=== PATIENT | female | born 1990 | race Caucasian/White ===

== ENCOUNTER → 2019-08-08 07:58 | Outpatient (BNVA) | payer MEDICAID, SELFPAY | PROVIDERS: Visit Provider Nurse Practitioner | DX: F90.2 Attention-deficit hyperactivity disorder, combined type (principal); F41.1 Generalized anxiety disorder | CPT/HCPCS: 99213 ==

== ENCOUNTER → 2019-10-07 07:33 | Outpatient (BNVA) | payer MEDICAID, SELFPAY | PROVIDERS: Visit Provider Nurse Practitioner | DX: F41.1 Generalized anxiety disorder (principal); F90.2 Attention-deficit hyperactivity disorder, combined type | CPT/HCPCS: 99213 ==

== ENCOUNTER → 2020-01-12 07:34 | Outpatient (BNVA) | payer OTHER, MEDICAID, SELFPAY | PROVIDERS: Visit Provider Nurse Practitioner | DX: F41.1 Generalized anxiety disorder (principal); F90.2 Attention-deficit hyperactivity disorder, combined type | CPT/HCPCS: 99213 ==

== ENCOUNTER → 2020-04-09 09:03 | Outpatient (BNVA) | payer OTHER, MEDICAID, SELFPAY | PROVIDERS: Visit Provider Nurse Practitioner | DX: F41.1 Generalized anxiety disorder (principal); F90.2 Attention-deficit hyperactivity disorder, combined type | CPT/HCPCS: 99213 ==

== ENCOUNTER → 2020-07-18 07:38 | Outpatient (BNVA) | payer OTHER, MEDICAID, SELFPAY | PROVIDERS: Visit Provider Nurse Practitioner | DX: F41.1 Generalized anxiety disorder (principal); F90.2 Attention-deficit hyperactivity disorder, combined type | CPT/HCPCS: 99214 ==

== ENCOUNTER → 2020-10-17 07:47 | Outpatient (BNVA) | payer OTHER, SELFPAY | PROVIDERS: Visit Provider Nurse Practitioner | DX: F41.1 Generalized anxiety disorder (principal); F90.2 Attention-deficit hyperactivity disorder, combined type | CPT/HCPCS: 99214 ==

== ENCOUNTER → 2021-01-09 07:50 | Outpatient (BNVA) | payer OTHER, SELFPAY | PROVIDERS: Visit Provider Nurse Practitioner | DX: F41.1 Generalized anxiety disorder (principal); F90.2 Attention-deficit hyperactivity disorder, combined type | CPT/HCPCS: 99214 ==

== ENCOUNTER → 2021-03-27 13:30 | Outpatient (BNVA) | payer OTHER, SELFPAY | PROVIDERS: PCP Nurse Practitioner Family; Visit Provider Nurse Practitioner Family | DX: R63.5 Abnormal weight gain (principal); R53.83 Other fatigue | CPT/HCPCS: 80053; 82607; 82728; 83036; 83550; 84436; 84443; 84481 ==

== ENCOUNTER → 2021-04-03 07:55 | Outpatient (BNVA) | payer OTHER, SELFPAY | PROVIDERS: Visit Provider Nurse Practitioner | DX: F41.1 Generalized anxiety disorder (principal); F90.2 Attention-deficit hyperactivity disorder, combined type | CPT/HCPCS: 99214 ==

== ENCOUNTER → 2021-04-04 09:23 | Outpatient (BNVA) | payer OTHER, SELFPAY | PROVIDERS: PCP Nurse Practitioner Family; Visit Provider Nurse Practitioner Family | DX: D50.9 Iron deficiency anemia, unspecified (principal); N92.0 Excessive and frequent menstruation with regular cycle; R53.83 Other fatigue; Z15.89 Genetic susceptibility to other disease; Z12.39 Encounter for other screening for malignant neoplasm of breast; N92.3 Ovulation bleeding; Z01.419 Encounter for gynecological examination (general) (routine) without abnormal findings | CPT/HCPCS: 82746; 87491; 87591; 87661; 88175 ==

== ENCOUNTER 2021-05-08 15:52 | Outpatient (CLI) | payer MEDICAID, SELFPAY ==
--- NOTE | 2021-05-08 15:45 | US_ITS ---
WS: [id number] ULTRASOUND PELVIS TECHNIQUE: Transabdominal and transvaginal. ULTRASOUND PELVIS TECHNIQUE: Transabdominal. CLINICAL INFORMATION: Menorrhagia-anemia COMPARISON: 2017 FINDINGS: Normal uterus with IUD in good position Orientation: Anteverted. Size: 9.1 cm x 6.1 cm x 4.8 cm. Masses: None. Cervix: Incidental nabothian cysts. Endometrium: Normal. Adnexa: Normal. Right ovary size: 2.8 cm x 1.5 cm x 1.5 cm. Right ovary volume: 3.2 ccm3. Left ovary size: 2.9 cm x 2.1 cm x 1.4 cm. Left ovary volume: 4.4 ccm3 Free fluid: Small amount of free fluid in the cul-de-sac Other findings: None. US/US pelvic with transvaginal IMPRESSION: 1. Normal uterus with IUD in good position. 2. Thickened endometrium 3. Both ovaries are normal in appearance with normal vascularity. 4. Trace free fluid in the cul-de-sac. 5. Incidental nabothian cysts.
== END 2021-05-08 15:53 | disposition home or self-care (01) ==
LOC: RAD 15:55
PROVIDERS: PCP Nurse Practitioner Family; Visit Provider Nurse Practitioner Family
DX: N92.0 Excessive and frequent menstruation with regular cycle (principal); D50.9 Iron deficiency anemia, unspecified; Z97.5 Presence of (intrauterine) contraceptive device; R93.89 Abnormal findings on diagnostic imaging of other specified body structures; N88.8 Other specified noninflammatory disorders of cervix uteri
CPT/HCPCS: 76830; 76856; 83550

== ENCOUNTER → 2021-05-17 13:56 | Day surgery (SDC) | payer MEDICAID, SELFPAY ==
[2021-05-17 14:12] VITALS: BP 132/93; PULSE 105; RESP 18; TEMP 36.6; O2SAT 100
[2021-05-17] MEDS: iron sucrose 200 MG in sodium chloride 0.9% (100 ml) 100 ML 220 MG IV (14:21)
== END ==
PROVIDERS: PCP Nurse Practitioner Family; Visit Provider Nurse Practitioner Family
DX: D50.9 Iron deficiency anemia, unspecified (principal); N92.0 Excessive and frequent menstruation with regular cycle
CPT/HCPCS: 96365; J1756

== ENCOUNTER → 2021-05-24 10:15 | Day surgery (SDC) | payer MEDICAID, SELFPAY ==
[2021-05-24] MEDS: iron sucrose 200 MG in sodium chloride 0.9% (100 ml) 100 ML 220 MG IV (10:31)
[2021-05-24 10:35] VITALS: BP 128/82; PULSE 100; RESP 18; TEMP 36.9; O2SAT 100
== END ==
PROVIDERS: PCP Nurse Practitioner Family; Visit Provider Nurse Practitioner Family
DX: D50.9 Iron deficiency anemia, unspecified (principal); N92.0 Excessive and frequent menstruation with regular cycle
CPT/HCPCS: 96365; J1756

== ENCOUNTER → 2021-05-31 07:21 | Day surgery (SDC) | payer MEDICAID, SELFPAY ==
[2021-05-31] MEDS: iron sucrose 200 MG in sodium chloride 0.9% (100 ml) 100 ML 220 MG IV (07:34)
[2021-05-31 07:36] VITALS: BP 129/82; PULSE 79; RESP 18; TEMP 36.3; O2SAT 98
== END ==
PROVIDERS: PCP Nurse Practitioner Family; Visit Provider Nurse Practitioner Family
DX: D50.9 Iron deficiency anemia, unspecified (principal); N92.0 Excessive and frequent menstruation with regular cycle
CPT/HCPCS: 96365; J1756

== ENCOUNTER → 2021-06-07 09:52 | Day surgery (SDC) | payer MEDICAID, SELFPAY ==
[2021-06-07] MEDS: iron sucrose 200 MG in sodium chloride 0.9% (100 ml) 100 ML 220 MG IV (10:10)
[2021-06-07 10:18] VITALS: BP 162/83; PULSE 97; RESP 18; TEMP 36.3; O2SAT 99
== END ==
LOC: GILAB 09:53
PROVIDERS: PCP Nurse Practitioner Family; Visit Provider Nurse Practitioner Family
DX: Z15.89 Genetic susceptibility to other disease (principal); D50.9 Iron deficiency anemia, unspecified
CPT/HCPCS: 96365; J1756

== ENCOUNTER → 2021-06-14 09:56 | Day surgery (SDC) | payer MEDICAID, SELFPAY ==
[2021-06-14] MEDS: iron sucrose 200 MG in sodium chloride 0.9% (100 ml) 100 ML 220 MG IV (10:19)
[2021-06-14 10:40] VITALS: BP 126/81; PULSE 94; RESP 18; TEMP 36.6; O2SAT 98
[2021-06-14 13:20] LABS: Iron 103 ug/dL (37-145); Percent Saturation 34.6 % (20-50); Total Iron Binding Capacity 297 mcg/dl; Unsaturated Iron Binding 194 ug/dL (112-347)
== END ==
PROVIDERS: PCP Nurse Practitioner Family; Visit Provider Nurse Practitioner Family
DX: D50.9 Iron deficiency anemia, unspecified (principal); N92.0 Excessive and frequent menstruation with regular cycle
CPT/HCPCS: 83540; 83550; 96365; J1756

== ENCOUNTER → 2021-06-25 07:20 | Outpatient (BNVA) | payer MEDICAID, SELFPAY | PROVIDERS: PCP Nurse Practitioner Family; Visit Provider Nurse Practitioner | DX: F41.1 Generalized anxiety disorder (principal); F90.2 Attention-deficit hyperactivity disorder, combined type | CPT/HCPCS: 99214 ==

== ENCOUNTER → 2021-07-23 10:50 | Outpatient (BNVA) | payer MEDICAID, SELFPAY | PROVIDERS: PCP Nurse Practitioner Family; Visit Provider Nurse Practitioner Family | DX: D50.9 Iron deficiency anemia, unspecified (principal); Z15.89 Genetic susceptibility to other disease | CPT/HCPCS: 83550 ==

== ENCOUNTER → 2021-09-02 07:14 | Outpatient (BNVA) | payer MEDICAID, SELFPAY | PROVIDERS: PCP Nurse Practitioner Family; Visit Provider Nurse Practitioner | DX: F41.1 Generalized anxiety disorder (principal); F90.2 Attention-deficit hyperactivity disorder, combined type | CPT/HCPCS: 99214 ==

== ENCOUNTER → 2022-08-26 11:04 | Outpatient (BNVA) | payer MEDICAID, SELFPAY | PROVIDERS: PCP Family Medicine; Visit Provider Family Medicine | DX: D50.9 Iron deficiency anemia, unspecified (principal); L65.9 Nonscarring hair loss, unspecified; E28.2 Polycystic ovarian syndrome | CPT/HCPCS: 80053; 80061; 82728; 83550; 84439; 84443; 85025 ==

== ENCOUNTER 2022-09-23 20:44 | Emergency (ER) | payer MEDICAID, SELFPAY ==
[2022-09-23 20:50] VITALS: BP 112/73; PULSE 86; RESP 16; TEMP 36.3; O2SAT 99; BMI 27.4
[2022-09-23 21:19] VITALS: BP 113/81; PULSE 77; RESP 18; O2SAT 100
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
[2022-09-23] MEDS: tetanus-dipt-pertussis 0.5 mL SDV IM (21:25)
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
[2022-09-23 21:30] VITALS: BP 112/70; PULSE 67; O2SAT 99
[2022-09-23] MEDS: fentaNYL 50 mcg/mL INJ 2mL IVP (21:37)
[2022-09-23] MEDS: ondansetron 2 mg/ML SDV 2 mL 4 MG IVP (21:37)
[2022-09-23 21:40] LABS: Eosinophils % 0.2 %; Hematocrit 41.8 % (37.0-47.0); Hemoglobin 14.1 g/dL (11.5-15.3); Lymphocytes % 49.7 %; Mean Corpuscular HGB Conc 33.7 g/dL (30.0-36.0); Mean Corpuscular Hemoglobin 28.3 pg (28.0-34.0); Mean Corpuscular Volume 83.9 fl (81-99); Mean Platelet Volume 9.4 fL (7.4-10.4); Monocytes # 0.5 10^3/uL (0.2-0.9); Monocytes % 7.4 %; Neutrophils # 2.58 10^3/uL (1.8-7.7); Neutrophils % 42.5 %; Nucleated Red Blood Cells % 0 %; Platelet Count 320 10^3/cmm (130-400); Red Blood Count 4.98 10^6/uL (4.1-5.3); White Blood Count 6.1 10^3/uL (4.0-10.0)
[2022-09-23 21:50] LABS: HCG, Serum Qual Negative (Negative)
[2022-09-23 21:56] LABS: Alanine Aminotransferase 18 U/L (0-33); Albumin Level 4.4 g/dL (3.5-5.2); Alkaline Phosphatase 57 U/L (35-105); Anion Gap 15.3 (5-19); Aspartate Amino Transferase 26 U/L (0-32); Blood Urea Nitrogen 13 mg/dL (6-20); Calcium 9.3 mg/dL (8.5-10.5); Carbon Dioxide 24 mmol/L (22-29); Chloride 105 mmol/L (98-107); Glomerular Filtration Rate 83.1 mL/min (90-130); Glucose 114 mg/dL (65-115); Osmolality Calculated 293 mOsm/kg (285-295); Potassium 3.3 mmol/L (3.5-5.1); Sodium 141 mmol/L (136-145); Total Bilirubin 0.4 mg/dL (0.15-1.2); Total Protein 7.4 g/dL (6.6-8.7)
[2022-09-23] MEDS: iohexol 350 mg/mL 500 mL Btl (per mL) IV (21:57)
[2022-09-23 22:15] VITALS: BP 101/76; PULSE 78; RESP 18; O2SAT 98
[2022-09-23 22:30] VITALS: PULSE 68; O2SAT 99
== END 2022-09-23 23:35 | disposition home or self-care (01) ==
PROVIDERS: Emergency Provider Emergency Medicine; PCP Family Medicine
DX: S30.1XXA Contusion of abdominal wall, initial encounter (principal); S81.811A Laceration without foreign body, right lower leg, initial encounter; S80.811A Abrasion, right lower leg, initial encounter; F17.210 Nicotine dependence, cigarettes, uncomplicated; V86.56XA Driver of dirt bike or motor/cross bike injured in nontraffic accident, initial encounter; Z23 Encounter for immunization
CPT/HCPCS: 12002; 74177; 80053; 84703; 85025; 90715; 96374; 96375; 99285; J2405; J3010; Q9967

== ENCOUNTER → 2023-09-30 11:22 | Outpatient (BNVA) | payer OTHER, SELFPAY | PROVIDERS: PCP Family Medicine; Visit Provider Family Medicine | DX: D50.9 Iron deficiency anemia, unspecified (principal); M25.541 Pain in joints of right hand; M25.542 Pain in joints of left hand; E28.2 Polycystic ovarian syndrome; F90.2 Attention-deficit hyperactivity disorder, combined type; L65.9 Nonscarring hair loss, unspecified; F17.200 Nicotine dependence, unspecified, uncomplicated | CPT/HCPCS: 80053; 82306; 82533; 82728; 83550; 84439; 84443; 85025; 85651; 86038; 86140; 86200; 86235; 86431 ==

== ENCOUNTER 2024-01-27 04:45 | Emergency (ER) | payer OTHER, SELFPAY ==
[2024-01-27 04:49] VITALS: BP 125/82; PULSE 99; RESP 18; TEMP 36.7; O2SAT 99; BMI 25.7
--- NOTE | 2024-01-27 04:53 | XRR_ITS ---
PROCEDURE INFORMATION: Exam: XR Chest Exam date and time: 01/27/2024 5:31 AM Age: 33 years old Clinical indication: Dyspnea; Prior surgery; Surgery date: Post-operative (0-2 days); Surgery type: Breast augmentation, abdominalplasty, yesterday TECHNIQUE: Imaging protocol: Radiologic exam of the chest. Views: 1 view. COMPARISON: CT abdomen pelvis w con* [id number] 09/23/2022 9:58 PM FINDINGS: Lungs: Unremarkable. No consolidation. Pleural spaces: Unremarkable. No pleural effusion. No pneumothorax. Heart/Mediastinum: Unremarkable. No cardiomegaly. Bones/joints: Unremarkable. XR/XR chest 1V portable [id number] IMPRESSION: No acute findings.
--- NOTE | 2024-01-27 04:55 | ECG_ITS ---
[facility] Test Date: 2024-01-27 Pat Name: Amy Uribe Department: Room: Gender: Female Pheresis Nurse: : 1990 Requested By: Emiliano Richards Order Number: [id number] Viry MD: Gem March M.D. Measurements Intervals [place] Rate: 80 P: 28 NE: 104 QRS: 70 QRSD: 94 T: 59 QT: 360 QTc: 416 Interpretive Statements SINUS RHYTHM WITH SHORT NE INTERVAL No previous ECG available for comparison Electronically Signed On 01-27-2024 23:35:12 CDT by Gem March M.D. [email or web address]
--- NOTE | 2024-01-27 04:57 | W.ED.GENADLT ---
Documented by User: Emiliano Rcihards DO 01/27/24 05:01 HPI - General Adult General: Chief complaint: General Medical Stated complaint: SoB Post Surgery Time Seen by Provider: 01/27/24 04:53 History of Present Illness: Patient presents to the ER with complaints of chest pain shortness of breath, it hurts to breathe and primarily on her left side, patient had surgery yesterday at [place], she had a mastopexy and a tummy tuck, patient was sent home on hydrocodone and was doing fairly well yesterday day throughout the night but when she woke up this morning she was in a lot more intense pain primarily in the chest on the left side and having a hard time catching her breath. Patient is not having any palpitations or calf pain. Related Data Previous Rx's Medication Instructions Recorded minoxidil 2 % topical solution 1 ml topical BID 4 months #180 mL 08/26/22 ferrous sulfate 325 mg (65 mg 325 mg PO .q48 3 months #45 tabs 10/07/23 iron) tablet (Feosol) prednisone 20 mg tablet 40 mg (2 x 20 mg) PO DAILY 5 days 10/07/23 #10 tabs lisdexamfetamine 60 mg capsule 60 mg PO QAM 30 days #30 caps 11/03/23 (Vyvanse) lisdexamfetamine 60 mg capsule 60 mg PO QAM 30 days #30 caps 01/20/24 (Vyvanse) Allergies Allergy/AdvReac Type Severity Reaction Status Date / Time morphine Allergy ALGY-Anaphy Verified 01/27/24 04:55 laxis Review of Systems General: Reports: 10 or more systems reviewed and unremarkable except in HPI and below PFSH ED PFSH: Medical History History of eustachian tube dysfunction 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 Generalized anxiety disorder Attention-deficit hyperactivity disorder, combined type Surgical History H/O section x5 S/P appendectomy S/P cholecystectomy H/O laparoscopy x2 ovarian cyst removal History of tonsillectomy and adenoidectomy Family History Mother Clotting disorder Diabetes Hyperlipidemia Heart disease Father Hyperlipidemia Grandfather Stroke maternal Grandmother Breast cancer maternal, 40 Family/Other Uterine cancer maternal great aunt, age onset unknown Other CAD (coronary artery disease) Maternal hypothyroidism Psychiatric illness Denies family history of Colon cancer Ovarian cancer Dementia Chronic kidney disease (CKD) Anesthesia complication Bleeding disorder Lung disease Hypertension Social History Smoking and tobacco/nicotine status: former use of tobacco/nicotine Alcohol intake: current Alcohol intake frequency: holidays/special occasions only Substance/Drug Use: never Lives independently: Yes Marital status: Number of children: 5 Current occupational status: employed 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 Special catarina needs: No Agree to transfusion: Yes Female Reproductive History: Date of last menstrual period: 01/27/24 Physical Exam Const: COMMON NORMALS: average body habitus, patient oriented x3, no limitations, healthy appearing, alert and well nourished HENMT: COMMON NORMALS: normocephalic, hearing grossly normal bilaterally, external ears normal, Normal external nose present and moist oral mucous membranes HEAD & SCALP: normocephalic NOSE: Normal external nose present EXTERNAL EAR: Yes external ears normal Neck/C-Spine: COMMON NORMALS: full ROM, no lymphadenopathy, supple, no meningeal signs, no JVD and Thyroid normal THYROID: Thyroid normal Chest: COMMONS NORMALS: normal inspection of the chest; negative for normal palpation of entire chest wall (Tenderness to palpation) Resp: COMMON NORMALS: normal respiratory effort, No retractions, No use of accessory muscles and clear to auscultation bilaterally AUSCULTATION: clear to auscultation bilaterally OTHER: Patient still able to take small short of breath due to pain Cardio: COMMON NORMALS: no JVD, regular rate, regular rhythm, S1 normal heart sound present, S2 normal heart sound present, No gallops present (Cardio), No clicks present (Cardio), No murmurs present (Cardio) and No rub (Cardio) RATE: regular rate RHYTHM: regular rhythm HEART SOUNDS: S1 normal heart sound present and S2 normal heart sound present GI: COMMON NORMALS: Normal to inspection, nondistended, normoactive bowel sounds present, Soft to palpation, No hepatosplenomegaly present and no masses; negative for non-tender (Diffusely tender to palpation) PALPATION: Yes Soft to palpation and Yes No hepatosplenomegaly present Neuro: COMMON NORMALS: patient oriented x3 SENSORIUM/ORIENTATION: Yes alert MENINGEAL SIGNS: Yes no meningeal signs Course Vital Signs: Vital signs: Vital Signs Temperature 98.0 F 01/27/24 04:49 Pulse Rate 82 01/27/24 06:27 Respiratory Rate 14 01/27/24 05:11 Blood Pressure 130/89 01/27/24 06:27 Pulse Oximetry 100 01/27/24 06:27 Oxygen Delivery Me thod Room Air 01/27/24 04:[address] [facility] - General Adult Medical Records I reviewed the patient's medical records. Lab Data I reviewed the patient's lab results. 01/27/24 05:20 01/27/24 05:20 Radiology Impressions Chest X-Ray 01/27/24 04:53 IMPRESSION: No acute findings. Laboratory Results WBC 15.34 10^3/uL (3.29-11.43) H 01/27/24 05:20 RBC 4.24 10^6/uL (3.85-5.65) 01/27/24 05:20 Hgb 12.40 g/dL (11.27-16.99) 01/27/24 05:20 Hct 36.3 % (36-47) 01/27/24 05:20 MCV 85.6 fl (85-98) 01/27/24 05:20 MCH 29.2 pg (27-33) 01/27/24 05:20 MCHC 34.2 g/dL (30-55) 01/27/24 05:20 RDW 13.6 % (12.1-15.1) 01/27/24 05:20 Plt Count 272 10^3/cmm (157-399) 01/27/24 05:20 MPV 9.3 fL (7.4-10.4) 01/27/24 05:20 Neut % (Auto) 74.6 % 01/27/24 05:20 Lymph % (Auto) 15.6 % 01/27/24 05:20 Kershaw % (Auto) 9.1 % 01/27/24 05:20 Eos % (Auto) 0.1 % 01/27/24 05:20 Baso % (Auto) 0.1 % 01/27/24 05:20 Neut # (Auto) 11.46 10^3/uL (1.8-7.7) H 01/27/24 05:20 Lymph # (Auto) 2.4 10^3/uL (0.8-4.8) 01/27/24 05:20 Kershaw # (Auto) 1.4 10^3/uL (0.2-0.9) H 01/27/24 05:20 Eos # (Auto) 0.0 10^3/uL (0.0-0.8) 01/27/24 05:20 Baso # (Auto) 0.0 10^3/uL (0.0-0.1) 01/27/24 05:20 Nucleated RBC % (auto) 0 % 01/27/24 05:20 Nucleated RBCs # 0.0 /100WBC 01/27/24 05:20 Sodium 139 mmol/L (136-145) 01/27/24 05:20 Potassium 3.9 mmol/L (3.5-5.1) 01/27/24 05:20 Chloride 106 mmol/L (98-107) 01/27/24 05:20 Carbon Dioxide 26 mmol/L (22-29) 01/27/24 05:20 Anion Gap 10.9 (5-19) 01/27/24 05:20 BUN 10 mg/dL (6-20) 01/27/24 05:20 Creatinine 0.7 mg/dL (0.5-0.9) 01/27/24 05:20 GFR Calculation 96.4 mL/min (90-130) 01/27/24 05:20 Glucose 112 mg/dL (65-115) 01/27/24 05:20 Calculated Osmolality 288 mOsm/kg (285-295) 01/27/24 05:20 Calcium 8.6 mg/dL (8.5-10.5) 01/27/24 05:20 Magnesium 1.8 mg/dL (1.7-2.3) 01/27/24 05:20 Total Bilirubin 0.6 mg/dL (0.15-1.2) 01/27/24 05:20 AST 27 U/L (0-32) 01/27/24 05:20 ALT 35 U/L (0-33) H 01/27/24 05:20 Alkaline Phosphatase 49 U/L (35-105) 01/27/24 05:20 Troponin T Baseline < 6 ng/L (0-10) 01/27/24 05:20 Total Protein 6.0 g/dL (6.6-8.7) L 01/27/24 05:20 Albumin 4.0 g/dL (3.5-5.2) 01/27/24 05:20 Globulin 2.0 g/dL (1.3-4.6) 01/27/24 05:20 All radiology interpretation(s) finalized by discharge Discharge Plan Discharge Patient Disposition: Home Clinical Impression: Post-operative pain Condition: Stable Prescriptions: No Action minoxidil 2 % solution 1 ml topical BID 120 Days Qty: 180 0RF lisdexamfetamine [Vyvanse] 60 mg capsule 60 mg PO QAM 30 Days Qty: 30 0RF prednisone 20 mg tablet 40 mg PO DAILY 5 Days Qty: 10 0RF ferrous sulfate [Feosol] 325 mg (65 mg iron) tablet 325 mg PO .q48 90 Days Qty: 45 1RF lisdexamfetamine [Vyvanse] 60 mg capsule 60 mg PO QAM 30 Days Qty: 30 0RF Discharge Orders: Discharge ED (Routine); Ordered 01/27/24 Ordered By: Susan Dalton Referrals: Jason Koch MD [Primary Care Provider] - Discharge Diet: Advance as tolerated Discharge Activity: Resume usual activity Patient Instructions: Post Operative Pain Coding Level of Care Code ED Defensive Fire Control Systems Operator for Chg Fwd Documented by User: Susan Dalton MD 01/27/24 07:38 HPI - General Adult General: Chief complaint: General Medical Stated complaint: SoB Post Surgery Time Seen by Provider: 01/27/24 04:53 Related Data Previous Rx's Medication Instructions Recorded minoxidil 2 % topical solution 1 ml topical BID 4 months #180 mL 08/26/22 ferrous sulfate 325 mg (65 mg 325 mg PO .q48 3 months #45 tabs 10/07/23 iron) tablet (Feosol) prednisone 20 mg tablet 40 mg (2 x 20 mg) PO DAILY 5 days 10/07/23 #10 tabs lisdexamfetamine 60 mg capsule 60 mg PO QAM 30 days #30 caps 11/03/23 (Vyvanse) lisdexamfetamine 60 mg capsule 60 mg PO QAM 30 days #30 caps 01/20/24 (Vyvanse) Allergies Allergy/AdvReac Type Severity Reaction Status Date / Time morphine Allergy ALGY-Anaphy Verified 01/27/24 04:55 laxis [facility] ED PFSH: Medical History History of eustachian tube dysfunction 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 Generalized anxiety disorder Attention-deficit hyperactivity disorder, combined type Surgical History H/O section x5 S/P appendectomy S/P cholecystectomy H/O laparoscopy x2 ovarian cyst removal History of tonsillectomy and adenoidectomy Family History Mother Clotting disorder Diabetes Hyperlipidemia Heart disease Father Hyperlipidemia Grandfather Stroke maternal Grandmother Breast cancer maternal, 40 Family/Other Uterine cancer maternal great aunt, age onset unknown Other CAD (coronary artery disease) Maternal hypothyroidism Psychiatric illness Denies family history of Colon cancer Ovarian cancer Dementia Chronic kidney disease (CKD) Anesthesia complication Bleeding disorder Lung disease Hypertension Social History Smoking and tobacco/nicotine status: former use of tobacco/nicotine Alcohol intake: current Alcohol intake frequency: holidays/special occasions only Substance/Drug Use: never Lives independently: Yes Marital status: Number of children: 5 Current occupational status: employed 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 Special 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 needs: No Agree to transfusion: Yes Course Vital Signs: Vital signs: Vital Signs Temperature 98.0 F 01/27/24 04:49 Pulse Rate 82 01/27/24 06:27 Respiratory Rate 14 01/27/24 05:11 Blood Pressure 130/89 01/27/24 06:27 Pulse Oximetry 100 01/27/24 06:27 Oxygen Delivery Me thod Room Air 01/27/24 04:49 MDM - General Adult Medical Decision Making Patient presents with postop pain had breast augmentation and abdominoplasty yesterday she is well-appearing here no hypoxia she has no signs of PE x-ray is clear she is stable for discharge her pain is much improved Lab Data 01/27/24 05:20 01/27/24 05:20 Radiology Impressions Chest X-Ray 01/27/24 04:53 IMPRESSION: No acute findings. Laboratory Results WBC 15.34 10^3/uL (3.29-11.43) H 01/27/24 05:20 RBC 4.24 10^6/uL (3.85-5.65) 01/27/24 05:20 Hgb 12.40 g/dL (11.27-16.99) 01/27/24 05:20 Hct 36.3 % (36-47) 01/27/24 05:20 MCV 85.6 fl (85-98) 01/27/24 05:20 MCH 29.2 pg (27-33) 01/27/24 05:20 MCHC 34.2 g/dL (30-55) 01/27/24 05:20 RDW 13.6 % (12.1-15.1) 01/27/24 05:20 Plt Count 272 10^3/cmm (157-399) 01/27/24 05:20 MPV 9.3 fL (7.4-10.4) 01/27/24 05:20 Neut % (Auto) 74.6 % 01/27/24 05:20 Lymph % (Auto) 15.6 % 01/27/24 05:20 Kershaw % (Auto) 9.1 % 01/27/24 05:20 Eos % (Auto) 0.1 % 01/27/24 05:20 Baso % (Auto) 0.1 % 01/27/24 05:20 Neut # (Auto) 11.46 10^3/uL (1.8-7.7) H 01/27/24 05:20 Lymph # (Auto) 2.4 10^3/uL (0.8-4.8) 01/27/24 05:20 Kershaw # (Auto) 1.4 10^3/uL (0.2-0.9) H 01/27/24 05:20 Eos # (Auto) 0.0 10^3/uL (0.0-0.8) 01/27/24 05:20 Baso # (Auto) 0.0 10^3/uL (0.0-0.1) 01/27/24 05:20 Nucleated RBC % (auto) 0 % 01/27/24 05:20 Nucleated RBCs # 0.0 /100WBC 01/27/24 05:20 Sodium 139 mmol/L (136-145) 01/27/24 05:20 Potassium 3.9 mmol/L (3.5-5.1) 01/27/24 05:20 Chloride 106 mmol/L (98-107) 01/27/24 05:20 Carbon Dioxide 26 mmol/L (22-29) 01/27/24 05:20 Anion Gap 10.9 (5-19) 01/27/24 05:20 BUN 10 mg/dL (6-20) 01/27/24 05:20 Creatinine 0.7 mg/dL (0.5-0.9) 01/27/24 05:20 GFR Calculation 96.4 mL/min (90-130) 01/27/24 05:20 Glucose 112 mg/dL (65-115) 01/27/24 05:20 Calculated Osmolality 288 mOsm/kg (285-295) 01/27/24 05:20 Calcium 8.6 mg/dL (8.5-10.5) 01/27/24 05:20 Magnesium 1.8 mg/dL (1.7-2.3) 01/27/24 05:20 Total Bilirubin 0.6 mg/dL (0.15-1.2) 01/27/24 05:20 AST 27 U/L (0-32) 01/27/24 05:20 ALT 35 U/L (0-33) H 01/27/24 05:20 Alkaline Phosphatase 49 U/L (35-105) 01/27/24 05:20 Troponin T Baseline < 6 ng/L (0-10) 01/27/24 05:20 Total Protein 6.0 g/dL (6.6-8.7) L 01/27/24 05:20 Albumin 4.0 g/dL (3.5-5.2) 01/27/24 05:20 Globulin 2.0 g/dL (1.3-4.6) 01/27/24 05:20 Discharge Plan Discharge Patient Disposition: Home Clinical Impression: Post-operative pain Condition: Stable Prescriptions: No Action minoxidil 2 % solution 1 ml topical BID 120 Days Qty: 180 0RF lisdexamfetamine [Vyvanse] 60 mg capsule 60 mg PO QAM 30 Days Qty: 30 0RF prednisone 20 mg tablet 40 mg PO DAILY 5 Days Qty: 10 0RF ferrous sulfate [Feosol] 325 mg (65 mg iron) tablet 325 mg PO .q48 90 Days Qty: 45 1RF lisdexamfetamine [Vyvanse] 60 mg capsule 60 mg PO QAM 30 Days Qty: 30 0RF Discharge Orders: Discharge ED (Routine); Ordered 01/27/24 Ordered By: Susan Dalton Referrals: Jason Koch MD [Primary Care Provider] - Discharge Diet: Advance as tolerated Discharge Activity: Resume usual activity Patient Instructions: Post Operative Pain Coding Level of Care Code ED Defensive Fire Control Systems Operator for Ray Edward
[2024-01-27 05:02] VITALS: BP 125/82; PULSE 78; RESP 16; O2SAT 98
[2024-01-27 05:11] VITALS: RESP 14
[2024-01-27] MEDS: fentaNYL 50 mcg/mL INJ 2mL IVP (05:11)
[2024-01-27] MEDS: ondansetron 2 mg/ML SDV 2 mL 4 MG IVP (05:11)
[2024-01-27 05:28] LABS: Basophils % 0.1 %; Eosinophils % 0.1 %; Hematocrit 36.3 % (36-47); Lymphocytes # 2.4 10^3/uL (0.8-4.8); Lymphocytes % 15.6 %; Mean Corpuscular HGB Conc 34.2 g/dL (30-55); Mean Corpuscular Hemoglobin 29.2 pg (27-33); Mean Corpuscular Volume 85.6 fl (85-98); Mean Platelet Volume 9.3 fL (7.4-10.4); Monocytes # 1.4 10^3/uL (0.2-0.9); Monocytes % 9.1 %; Neutrophils # 11.46 10^3/uL (1.8-7.7); Neutrophils % 74.6 %; Nucleated Red Blood Cells % 0 %; Platelet Count 272 10^3/cmm (157-399); Red Blood Count 4.24 10^6/uL (3.85-5.65); Red Cell Distribution Width 13.6 % (12.1-15.1); White Blood Count 15.34 10^3/uL (3.29-11.43)
[2024-01-27 05:45] LABS: Troponin(5th) Baseline < 6 ng/L (0-10)
[2024-01-27 05:46] LABS: Alanine Aminotransferase 35 U/L (0-33); Alkaline Phosphatase 49 U/L (35-105); Anion Gap 10.9 (5-19); Aspartate Amino Transferase 27 U/L (0-32); Blood Urea Nitrogen 10 mg/dL (6-20); Calcium 8.6 mg/dL (8.5-10.5); Carbon Dioxide 26 mmol/L (22-29); Chloride 106 mmol/L (98-107); Creatinine Clr Calc Pharmacy 108.3381; Glomerular Filtration Rate 96.4 mL/min (90-130); Glucose 112 mg/dL (65-115); Magnesium 1.8 mg/dL (1.7-2.3); Osmolality Calculated 288 mOsm/kg (285-295); Potassium 3.9 mmol/L (3.5-5.1); Sodium 139 mmol/L (136-145); Total Bilirubin 0.6 mg/dL (0.15-1.2)
[2024-01-27] MEDS: HYDROmorphone 1 mg/mL INJ 1 mL 0.5 MG IVP (06:25)
[2024-01-27 06:27] VITALS: BP 130/89; PULSE 82; O2SAT 100
== END 2024-01-27 06:27 | disposition home or self-care (01) ==
PROVIDERS: Emergency Medicine; Emergency Provider Emergency Medicine; PCP Family Medicine
DX: G89.18 Other acute postprocedural pain (principal); Z87.891 Personal history of nicotine dependence; Z98.890 Other specified postprocedural states
CPT/HCPCS: 71045; 80053; 83735; 84484; 85025; 93005; 96374; 96375; 99285; J1170; J2405; J3010

== ENCOUNTER 2024-07-05 10:30 | Outpatient (CLI) | payer SELFPAY ==
[2024-07-05 11:05] LABS: HF Add Manual Diff No
[2024-07-05 11:10] LABS: Basophils % 0.4 %; Eosinophils # 0.1 10^3/uL (0.0-0.8); Eosinophils % 0.8 %; Hematocrit 42.9 % (36-47); Lymphocytes # 2.4 10^3/uL (0.8-4.8); Lymphocytes % 31.2 %; Mean Corpuscular Hemoglobin 31.4 pg (27-33); Mean Corpuscular Volume 89.9 fl (85-98); Mean Platelet Volume 9.3 fL (7.4-10.4); Monocytes # 0.7 10^3/uL (0.2-0.9); Monocytes % 9.7 %; Neutrophils # 4.36 10^3/uL (1.8-7.7); Neutrophils % 57.6 %; Nucleated Red Blood Cells % 0 %; Platelet Count 308 10^3/cmm (157-399); Red Blood Count 4.77 10^6/uL (3.85-5.65); Red Cell Distribution Width 12.5 % (12.1-15.1); White Blood Count 7.56 10^3/uL (3.29-11.43)
[2024-07-05 11:31] LABS: Estmated Average Glucose 80; Hemoglobin A1C 4.4 % (4.0-6.0)
[2024-07-05 11:38] LABS: Alanine Aminotransferase 18 U/L (0-33); Albumin Level 4.3 g/dL (3.5-5.2); Alkaline Phosphatase 56 U/L (35-105); Aspartate Amino Transferase 18 U/L (0-32); Blood Urea Nitrogen 11 mg/dL (6-20); Calcium 9.5 mg/dL (8.5-10.5); Carbon Dioxide 26 mmol/L (22-29); Chloride 104 mmol/L (98-107); Chol HDL Ratio 2.48 mg/dL (0.0-4.40); Cholesterol 186 mg/dL (0-200); Globulin 2.9 g/dL (1.3-4.6); Glomerular Filtration Rate 114.4 mL/min (90-130); Glucose 84 mg/dL (65-115); HDL Cholesterol 75 mg/dL (60-100); LDL Cholesterol Calculated 93 mg/dL (50-129); LDL HDL Ratio 1.24 RATIO (0.00-3.22); Osmolality Calculated 289 mOsm/kg (285-295); Sodium 140 mmol/L (136-145); Thyroid Stimulating Hormone 1.98 uIU/mL (0.27-4.20); Total Bilirubin 0.5 mg/dL (0.15-1.2); Total Protein 7.2 g/dL (6.6-8.7); Triglycerides 90 mg/dL (0-150)
== END 2024-07-05 10:31 | disposition home or self-care (01) ==
PROVIDERS: PCP Family Medicine; Visit Provider Dermatology
DX: Z01.89 Encounter for other specified special examinations (principal)

== ENCOUNTER 2024-12-20 18:01 | Emergency (ER) | payer OTHER, SELFPAY ==
[2024-12-20 18:04] VITALS: BP 142/109; PULSE 109; RESP 14; TEMP 36.7; O2SAT 99
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
== END 2024-12-20 20:00 | disposition home or self-care (01) ==
PROVIDERS: Emergency Provider Physician Assistant; PCP Family Medicine
DX: S52.501A Unspecified fracture of the lower end of right radius, initial encounter for closed fracture (principal); Z87.891 Personal history of nicotine dependence; X58.XXXA Exposure to other specified factors, initial encounter
CPT/HCPCS: 70450; 72125; 73090; 99284

== ENCOUNTER 2024-12-23 11:56 | Emergency (ER) | payer OTHER, SELFPAY ==
--- NOTE | 2024-12-23 11:57 | CT_ITS ---
WS: [id number] Exam: CT head wo con* [id number] Date/Time of Exam: 12/23/2024 12:42 PM Reason For Exam: Trauma DLP: 1339.[address] scans at [facility] use at least one of these dose optimization techniques: automated exposure control; mA and/or kV adjustment per patient size (includes targeted exams where dose is matched to clinical indication); or iterative reconstruction. Comparison 12/20/2024. There was no sign of space-occupying mass or acute intracranial bleed. The ventricles and basal cisterns are normal in size. No extra-axial fluid collections. The brainstem and cerebellum are unremarkable. The skull is intact. The facial sinuses and mastoids are clear. Unremarkable orbits and optic globes. CT/CT head wo con* [id number] IMPRESSION: 1. No acute intracranial finding.
[2024-12-23 11:58] VITALS: BP 134/104; PULSE 88; RESP 17; TEMP 36.7; O2SAT 100; BMI 25.4
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
--- OUTSIDE RECORDS SUMMARY | 2024-12-23 11:59 | XMS_ITS | Clinical Summary ---
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 Gender Identity Not on file Sexual Orientation [...] 2024 01/23/2022 Medical Devices Implanted Type Area Wire Stitcher Machine Device Identifier Shelf Expiration Date Model / Serial / Lot Barrier Seprafilm 5x6in 4301-02 - [id number] Implanted:Qt y: 1 on 05/13/2012 by Indra Pruitt MD at [facility] Adhesion Barrier N/A: Peritoneum GENZYME- BIOSURG 4301-02 / / [id number] Barrier Seprafilm 5x6in [id number] - [id number] Implanted:Qt y: 1 on 11/13/2013 by Aldo Rivera MD at [facility] Adhesion Barrier N/A: Abdomen [employer] 09/26/2015 [id number] / / [id number] Insurance [address] [place] [address] [employer] PPO [id number] [place] [address] [employer] PPO [id number] Advance Directives For more information, please contact: [phone] * Full Code (Latest Code Status on [...] 6:13 AM 05/13/2012 11:06 AM Care Teams Medical Record Coder Relationship Specialty Start Date End Date Aldo Rivera MD PCP - General Obstetrics and Gynecology 05/12/12
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
[2024-12-23 13:20] VITALS: BP 136/100; PULSE 78; O2SAT 100
[2024-12-23 13:36] VITALS: BP 132/95; PULSE 70; O2SAT 99
[2024-12-23 13:59] VITALS: BP 132/93; PULSE 76; O2SAT 100
== END 2024-12-23 14:00 | disposition home or self-care (01) ==
PROVIDERS: Emergency Provider Family Medicine; PCP Family Medicine
DX: S06.0X0A Concussion without loss of consciousness, initial encounter (principal); Y04.2XXA Assault by strike against or bumped into by another person, initial encounter; Z87.891 Personal history of nicotine dependence; M25.511 Pain in right shoulder; M25.521 Pain in right elbow; M25.531 Pain in right wrist
CPT/HCPCS: 70450; 73080; 73200; 99284

== ENCOUNTER → 2024-12-27 14:44 | Outpatient (BNVA) | payer SELFPAY | PROVIDERS: PCP Family Medicine; Visit Provider Student in an Organized Health Care Education/Training Program | DX: S40.021A Contusion of right upper arm, initial encounter (principal); S52.121A Displaced fracture of head of right radius, initial encounter for closed fracture; Y04.2XXD Assault by strike against or bumped into by another person, subsequent encounter; Y99.0 Civilian activity done for income or pay | CPT/HCPCS: 73080; 73090; 73110 ==